=== PATIENT | male | born 1955 | race Caucasian/White ===

== ENCOUNTER 2016-06-15 11:01 | Day surgery (SDC) | payer BC ==
[2016-06-10 12:23] VITALS: BMI 27.2
[2016-06-15] MEDS ORDERED: MIDAZOLAM HCL 2 MG/2 ML SINGLE DOSE VIAL ONE (14:28)
[2016-06-15] MEDS ORDERED: ROCURONIUM BROMIDE 50 MG/5 ML VIAL ONE (14:32)
[2016-06-15] MEDS ORDERED: PROPOFOL 20 ML ONE (14:32)
[2016-06-15] MEDS ORDERED: THROMBIN (BOVINE) 5,000 UNIT VIAL TP ONE (15:06)
[2016-06-15] MEDS ORDERED: GELATIN, ABSORBABLE 100 EACH SPONGE TP ONE (15:06)
[2016-06-15] MEDS ORDERED: CLINDAMYCIN PHOSPHATE 600 MG/4 ML VIAL ONE (15:34)
[2016-06-15] MEDS ORDERED: ePHEDrine SULFATE 50 MG/1 ML AMPULE ONE (15:43)
[2016-06-15] MEDS ORDERED: GLYCOPYRROLATE 0.2 MG/1 ML VIAL ONE (16:47)
[2016-06-15] MEDS ORDERED: DEXAMETHASONE SOD PHOSPHATE 4 MG/1 ML VIAL ONE (16:47)
[2016-06-15] MEDS ORDERED: ONDANSETRON 4 MG/2 ML VIAL ONE ×2 (16:47→17:31)
[2016-06-15] MEDS ORDERED: NEOSTIGMINE METHYLSULFATE 0.5 MG/ML - 10 ML MDV ONE (16:47)
[2016-06-15] MEDS ORDERED: SODIUM CHLORIDE 0.45% 1,000 ML IV SCH (17:00)
[2016-06-15] MEDS ORDERED: morphine CARPU-JECT 4 MG/1 ML DISP.SYRIN IM PRN (17:01)
[2016-06-15] MEDS ORDERED: ONDANSETRON 4 MG/2 ML VIAL IVPUSH PRN (17:13)
[2016-06-15] MEDS ORDERED: LACTATED RINGERS SOLUTION 1,000 ML IV SCH (17:15)
[2016-06-15] MEDS: OXYCODONE/APAP 5/325MG COMBO TABLET PO PRN (19:00)
[2016-06-15] MEDS: DOCUSATE SODIUM 100 MG CAPSULE (FP) PO SCH (21:41)
[2016-06-15] MEDS: CLINDAMYCIN 600MG PREMIX IVPB 50 ML IVPB SCH (23:58)
[2016-06-16] MEDS: OXYCODONE/APAP 5/325MG COMBO TABLET PO PRN ×4 (01:55→10:18)
--- NOTE | 2016-06-16 05:55 | OP ---
DATE OF OPERATION: 06/15/2016 PREOPERATIVE DIAGNOSIS: Recurrent left L4-L5 herniated disc. POSTOPERATIVE DIAGNOSIS: Recurrent left L4-L5 herniated disc. PROCEDURE: Revision microlumbar discectomy, left side, at L4-L5. SURGEON: Sunita Madden MD EXHIBITIONS AND COLLECTIONS MANAGER: HOLLAND Andre ANESTHESIA: General. INDICATIONS: Patient is a 60-year-old male who underwent a microlumbar discectomy for a large herniated disc on the left side at L4-L5 two weeks ago. He had 2 days of excellent pain relief, and then subsequently began with numbness and then subsequently pain radiating down the left leg again. Followup MRI showed a clear recurrent disc herniation. He is indicated for revision microlumbar discectomy. Risks, benefits, and alternatives were discussed, and informed consent was obtained. DESCRIPTION OF PROCEDURE: The patient was brought into the operating room via stretcher, and general endotracheal anesthesia was administered by the anesthesiologist. The patient was then flipped into the prone position onto the padded Tim frame with a fluoroscopic C-arm to allow for lateral fluoroscopic radiographs. The back was then prepped and draped in the usual sterile fashion. Prophylactic antibiotics were administered. A time-out was performed. The same prior incision was then opened up, and dissection was carried down to the level of the fascia. There was a small seroma noted in the subcutaneous tissues. There was no purulence noted. The fascia was then opened, and subperiosteal dissection was carried down to the bony spine exposing the prior laminotomy window. A deep retractor was then placed. A microscope was then brought in. Scar tissue superficially was removed, and the area copiously irrigated. I dissected out the medial edge of the neural tissue, and a clear recurrent disc herniation was noted. The large fragment was then removed. Subsequently, I found the prior annulotomy, and the small disc fragments were then removed until the nerve root was well decompressed. The wounds were then copiously irrigated. The deep fascia was then closed with No. 1 Vicryl suture in interrupted fashion. The deep dermal tissue was approximated with 2-0 Vicryl suture, and the skin was closed with vertical mattress 2-0 nylon sutures. Sterile dressing was applied. HOLLAND Andre, was necessary throughout the case to properly assist in the retraction of the neural elements on the discectomy portion of the procedure. This could not have been done without her skilled surgical assistance. SUNITA MADDEN M.D. [id number]
[2016-06-16 06:16] VITALS: BP 116/72; PULSE 88; TEMP 98.1
--- NOTE | 2016-06-16 08:16 | PN ---
Progress Note (short form) - Note Progress Note: 60M POD1 s/p revision diskectomy L4/5 under GA-ETT doing well. Pt states pain is well controlled, reports no anesthetic complications, AVSS. Sensory and motor exam is unchanged from baseline.
[2016-06-16] MEDS: CLINDAMYCIN 600MG PREMIX IVPB 50 ML IVPB SCH (08:34)
[2016-06-16] MEDS: DOCUSATE SODIUM 100 MG CAPSULE (FP) PO SCH (10:18)
--- NOTE | 2016-06-16 11:33 | PN ---
Progress Note (short form) - Note Progress Note: doing much better no left leg pain, toes still numb afeb wound dressing clean POD1 s/p revision MLD for recurrent HNP -d/c home -wound care discussed -f/u next week
--- NOTE | 2016-06-17 13:21 | PATH ---
Surgical Pathology Report Patient Name: SHA HENSON Med. Rec. #: [id number] /Age/Gender: 1955 (Age: 60) / M Account: [id number] Location: [facility] AMBULATORY Taken: 06/15/2016 Received: 06/15/2016 Reported: 06/17/2016 Physicians: Davi Cortez M.D. Specimen(s) Received L4-5 DISC Clinical History Recurrent disc herniation Final Diagnosis INTERVERTEBRAL DISC, L4-5, PARTIAL EXCISION: PORTIONS OF INTERVERTEBRAL DISC. Electronically Signed Ricardo Hernandez M.D. Gross Description Received in formalin, labeled "L4-5 disc," is a 1.3 x 1.1 x 0.3 cm aggregate of calvillo fragments of fibrocartilaginous tissue. The specimen is submitted in total in one cassette. 06/16/201606/16/2016
== END 2016-06-16 11:28 | disposition home or self-care (01) ==
LOC: FASU 11:01 → FM/S 18:48 → FASU 06-16 11:28
PROVIDERS: ATTEND Orthopaedic Surgery Orthopaedic Surgery of the Spine
PROC: 01NB0ZZ Release Lumbar Nerve, Open Approach (ICD-10-PCS; principal; 2016-06-15 15:00)
DX: M51.26 Other intervertebral disc displacement, lumbar region (principal)
CPT/HCPCS: 72100-TC; 76001-TC; 88304-TC; 94760; 97116-GP; 97161-GP